=== PATIENT | male | born 1980 | race Caucasian/White ===

== ENCOUNTER 2019-04-26 08:17 | Emergency (ER) | payer OTHER ==
[~2019-04-26] VITALS: Ht 175.3 cm; Wt 74.4 kg
[2019-04-26 08:27] VITALS: Ht 175.3 cm; Wt 74.4 kg
[2019-04-26 09:30] VITALS: BP 122/76
== END 2019-04-26 09:30 | disposition home or self-care (01) ==
LOC: ED 08:17
DX: S83.91XA Sprain of unspecified site of right knee, initial encounter (principal); F41.9 Anxiety disorder, unspecified; W20.8XXA Other cause of strike by thrown, projected or falling object, initial encounter; Y93.89 Activity, other specified; Y92.89 Other specified places as the place of occurrence of the external cause; Y99.8 Other external cause status